=== PATIENT | male | born 1990 | race Caucasian/White ===

== ENCOUNTER 2016-12-18 21:18 | Emergency (ER) | payer OTHER ==
[2016-12-18] MEDS ORDERED: Bacitracin OINTMENT* 1 TUBE TOPICAL ONE (22:34)
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
[2016-12-18 23:00] VITALS: BP 109/76
== END 2016-12-18 22:59 | disposition home or self-care (01) ==
LOC: ED 21:18
DX: T21.02XA Burn of unspecified degree of abdominal wall, initial encounter (principal); T20.00XA Burn of unspecified degree of head, face, and neck, unspecified site, initial encounter; T21.01XA Burn of unspecified degree of chest wall, initial encounter; X12.XXXA Contact with other hot fluids, initial encounter; Y93.9 Activity, unspecified; Y92.9 Unspecified place or not applicable
CPT/HCPCS: 99281; A9270-GY